=== PATIENT | female | born 1950 | race Caucasian/White ===

== ENCOUNTER 2018-08-18 06:05 | Observation (INO) ==
[2018-08-18] MEDS ORDERED: ASPIRIN PO ONE (06:13)
--- NOTE | 2018-08-18 06:27 | PROVIDER DOCUMENTATION ---
HPI-Chest Pain - General Chief Complaint: Chest Pain Stated Complaint: CP ALL NIGHT Time Seen by Provider: 08/18/18 06:11 Source: patient - History of Present Illness-CP Nature of Presenting Problem: pt has had intermittent Chest discomfort since Tuesday. Nothing made better norworse, no radiation. However, ~0300 this am, it returned, constant since onset, assoc with ht racing, radiates to back. No SOB, no N/V, no diaphoresis. Turning in some positions made it better. Was trying to wait on her appointment with Dr Arnold on 09/04. Saw him once in 2017, had EKG, echo, stress test. Location: reports: substernal Chest Pain Radiation: reports: back Quality of Pain: reports: other ("discomfort") Severity in ED: moderate Timing: still present, constant Context/Activities at Onset: reports: light activity (had just got up to go to restroom) Associated Symptoms: reports: back pain, weakness (ht racing) Nitro Today/Relief: provided by ED Aspirin Treatment Today: 325 mg x 1, provided by ED Prior Chest Pain/Cardiac Workup: reports: echocardiography, stress test Similar Symptoms Previously?: Yes (since Tuesday) Recently Seen Here or By Another Healthcare Provider: No Review of Systems - Adult - REVIEW OF SYSTEMS - ADULT Constitutional: reports: no symptoms reported Eyes: reports: no symptoms reported Ears, Nose, Mouth & Throat: reports: no symptoms reported Cardiovascular: reports: see HPI Respiratory: reports: no symptoms reported Gastrointestinal: reports: no symptoms reported Genitourinary: reports: no symptoms reported Musculoskeletal: reports: no symptoms reported Integumentary: reports: no symptoms reported Neurological: reports: no symptoms reported Psychiatric: reports: no symptoms reported Endocrine: reports: no symptoms reported Hematologic/Lymphatic: reports: no symptoms reported Allergic/Immunologic: reports: no symptoms reported Past History - Adult - PAST MEDICAL HISTORY-ADULT Review of Records: reports: Medications Reviewed Major Childhood Illnesses: reports: denies history Cardiovascular: reports: HTN Gastrointestinal: reports: GERD Obstetrical/Gynecological: reports: uterine/ovarian cancer Genitourinary: reports: denies history Musculoskeletal: reports: denies history Neurological: reports: denies history Psychiatric: reports: denies history Endocrine/Immune: reports: denies history - SOCIAL HISTORY Smoking: denies Physical Exam-General - PHYSICAL EXAM-ADULT Initial Vital Signs Reviewed: Yes - CONSTITUTIONAL General Appearance: appears well, alert, no apparent distress - EYES Eyes: PERRL/EOMI, pink conjunctivae - HEAD, EARS, NOSE, MOUTH & THROAT HENMT: normocephalic/atraumatic, moist mucous membranes, normal ENT inspection, pharynx normal - NECK Neck: non-tender, full range of motion, supple, normal inspection - RESPIRATORY Respiratory: chest non-tender, lungs clear, normal breath sounds, no pleuratic chest pain, no respiratory distress, no accessory muscle use - CARDIOVASCULAR Cardiovascular: normal peripheral pulses, regular rate, rhythm, no edema, no gallop, no murmur - GASTROINTESTINAL (ABDOMEN) Abdominal Exam: non tender, soft - MUSCULOSKELETAL Back Exam: normal inspection, no CVA tenderness, no vertebral tenderness, decreased range of motion Extremity: normal range of motion, non-tender, normal inspection - SKIN Integumentary: normal color, normal turgor, warm/dry - 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, grossly normal, no motor/sensory deficits - PSYCHIATRIC Psych/Mental Status: normal mood/affect, normal thought content, normal thought process, oriented x 3 - HEART Score HEART Score: History: Moderately Suspicious HEART Score: ECG: Normal HEART Score: Age: > or = 65 Years HEART Score: Risk Factors for Atherosclerotic Disease: 1 or 2 Risk Factors HEART Score: Troponin: < or = Normal Limit Total HEART Score:: 4 Progress - PLAN OF CARE/RESULTS Progress/Plan/Lab Results: Vital Signs - 8 hr 08/18/18 06:08 08/18/18 06:14 08/18/18 06:15 Temperature 97.9 F Pulse Rate 90 142 H Respiratory Rate 20 Blood Pressure 162/67 162/67 O2 Sat by Pulse Oximetry 98 97 98 08/18/18 06:20 08/18/18 06:30 08/18/18 06:33 Temperature Pulse Rate 87 74 72 Respiratory Rate 19 16 13 Blood Pressure 149/67 O2 Sat by Pulse Oximetry 99 99 99 08/18/18 06:40 08/18/18 06:44 08/18/18 06:50 Temperature Pulse Rate 88 75 76 Respiratory Rate 19 18 22 Blood Pressure 153/61 O2 Sat by Pulse Oximetry 98 96 08/18/18 07:00 08/18/18 07:02 Temperature 97.9 F Pulse Rate 72 72 Respiratory Rate 19 13 Blood Pressure 138/64 O2 Sat by Pulse Oximetry 98 98 Laboratory Results - last 24 hr 08/18/18 08/18/18 08/18/18 06:22 06:22 06:22 WBC 8.33 RBC 4.92 Hgb 15.4 Hct 44.3 MCV 90.0 MCH 31.3 H MCHC 34.8 RDW Std Deviation 13.3 Plt Count 284 MPV 11.5 H Immature Gran % (Auto) 0.4 Neut % (Auto) 70.6 Lymph % (Auto) 20.4 L Edwards % (Auto) 7.4 Eos % (Auto) 0.8 Baso % (Auto) 0.4 Immature Gran # (Auto) 0.03 Neut # (Auto) 5.88 Lymph # (Auto) 1.70 Edwards # (Auto) 0.62 H Eos # (Auto) 0.07 Baso # (Auto) 0.03 PT INR PTT (Actin FS) D-Dimer, Quantitative Sodium 145 Potassium 3.7 Chloride 104 Carbon Dioxide 26 Anion Gap 15 BUN 11 Creatinine 0.6 Estimated GFR/1.73 m2 > 60 BUN/Creatinine Ratio 18 Glucose 102 Calculated Osmolality 288 Calcium 11.3 H Total Bilirubin 0.51 AST 19 ALT 25 Alkaline Phosphatase 105 H Creatine Kinase 30 Troponin T Aoy-[id number] Pept 122 Total Protein 6.9 Albumin 4.8 Globulin 2.1 Albumin/Globulin Ratio 2.3 08/18/18 08/18/18 06:22 06:22 WBC RBC Hgb Hct MCV MCH MCHC RDW Std Deviation Plt Count MPV Immature Gran % (Auto) Neut % (Auto) Lymph % (Auto) Edwards % (Auto) Eos % (Auto) Baso % (Auto) Immature Gran # (Auto) Neut # (Auto) Lymph # (Auto) Edwards # (Auto) Eos # (Auto) Baso # (Auto) PT 11.9 INR 0.81 PTT (Actin FS) 23.9 D-Dimer, Quantitative 0.27 Sodium Potassium Chloride Carbon Dioxide Anion Gap BUN Creatinine Estimated GFR/1.73 m2 BUN/Creatinine Ratio Glucose Calculated Osmolality Calcium Total Bilirubin AST ALT Alkaline Phosphatase Creatine Kinase Troponin T < 0.010 Hjw-[id number]-Zzadbninagg Pept Total Protein Albumin Globulin Albumin/Globulin Ratio Orders Category Date Time Status Nursing- Obtain EKG ONCE Care 08/18/18 06:13 Active Nursing- Obtain EKG once Care 08/18/18 08:15 Active CHEST-1 VIEW [RAD] Stat Exams 08/18/18 06:13 Completed CBC WITH DIFF [HEME] Stat Lab 08/18/18 06:22 Completed CK PROFILE [SP CHEM] Stat Lab 08/18/18 06:22 Completed COMPREHENSIVE METABOLIC PANEL [CHEM] Stat Lab 08/18/18 06:22 Completed D-DIMER [COAG] Stat Lab 08/18/18 06:22 Completed PRO B-NATRIURETIC PEPTIDE Stat Lab 08/18/18 06:22 Completed PROTIME WITH INR [COAG] Stat Lab 08/18/18 06:22 Completed PTT [COAG] Stat Lab 08/18/18 06:22 Completed TROPONIN T Stat Lab 08/18/18 06:22 Completed TROPONIN T Stat Lab 08/18/18 08:15 Uncollected Aspirin Med 08/18/18 06:13 Discontinued 324 mg PO NOW ONE Nitroglycerin Med 08/18/18 06:31 Discontinued 1 inch TOP NOW ONE EKG [EKG] Stat Ther 08/18/18 06:13 Draft EKG [EKG] Stat Ther 08/18/18 08:15 Draft Transfer/Admit Order [TRANSFER] Routine Transfer 08/18/18 07:36 Ordered Result Diagrams: 08/18/18 06:22 08/18/18 06:22 - REASSESSMENT Reassessment #1 Time Reassessed: 07:29 Status: improving (Seen and examined by me. Case discussed with Dr. Cordon at shift change. Patient has been having intermittent SS Chest Pain/pressure, radiating to back getting more frequent and severe, unable to sleep last night. Patient has HEART score of 4 moderate risk. Has an appointment 09/04 with [facility], but felt she couldn't wait till then to get checked out.) - EKG 1 Time of EKG reading by physician:: 06:15 EKG Read and Signed by:: Jani Cordon EKG Interpretation (*Must complete 3 of following elements*): Normal Rate: 74 Rhythm: NSR [place]: normal QRS: normal ST Wave: normal 2 Time of EKG reading by physician:: 07:24 EKG Read and Signed by:: Nicolás Douglas EKG Interpretation (*Must complete 3 of following elements*): Normal Rate: 67 Rhythm: nsr [place]: normal QRS: other (early transition) CO Interval: normal ST Wave: normal Prior EKG Comparison: unchanged from prior - XRAY 1 XRAY Study: Chest Impression: Abnormal, See EMR Report ( EXAM: CHEST-1 VIEW 08/18/2018 HISTORY: cp TECHNIQUE: AP portable at 0641 COMMENT: There is no evidence of acute cardiac or pulmonary disease. There is curvature of the thoracic spine with convexity to the right. There are no previous studies. IMPRESSION: No evidence of acute disease. Electronically signed by Yuniel Simons 08/18/2018 7:04 AM 08/18/18 0704 Interpreting Physician: Yuniel Simons MD Dictated Date/Time: 08/18/18 0703 cc: Jani Cordon MD; Coy Gaffney) - CONSULTS/PCP/HOSPITALIST Notification #1 *Consult/PCP/Hospitalist*: Hospitalist paged at 0730 Time Discussed: 07:39 (Kylee ZAVALA answered) Consult Disposition: Admit (to [facility]) - CHANGE OF SHIFT REPORT (ED Provider) 1 Report Given and Care Transferred to:: Stella Time of Transfer: 06:59 Items Pending: Labs Departure - Departure Date of Disposition Decision: 08/18/18 Time of Disposition Decision: 07:31 DIAGNOSIS: Chest pain of uncertain etiology, Unstable angina Disposition: ADMITTED INPATIENT 09 Certified Medical Emergency: Emergent Condition: Stable Referrals and Follow-Ups: Coy Gaffney [Primary Care Provider] - - Critical Care Note This patient required my direct & personal management of CC.: No Attestation - Physician/ NIEVES Attestation Patient care was provided by Advanced Practice Provider:: No The physician spent face to face time with patient:: Yes Advanced Practice Provider documentation review:: Supervising physician onsite and consulted in the evaluation and care of this patient. The physician did have a face to face encounter with the patient.
[2018-08-18] MEDS ORDERED: NITROGLYCERIN TOP ONE (06:31)
[2018-08-18 06:33] LABS: BASO# 0.03 X1000 (0.0-0.2); BASO% 0.4 % (0.0-0.8); EOS# 0.07 X1000 (0.0-0.7); EOS% 0.8 % (0.0-10.0); HEMATOCRIT 44.3 % (37.0-47.0); HEMOGLOBIN 15.4 g/dL (12.0-16.0); IMM GRAN# 0.03 X1000 (0.0-0.04); IMM GRAN% 0.4 % (0.0-0.5); LYMPH% 20.4 % (20.5-51.1); MCH 31.3 PG (27-31); MCHC 34.8 g/dL (33-37); MONO# 0.62 X1000 (0.11-0.59); MONO% 7.4 % (1.7-9.3); MPV 11.5 FL (7.4-10.4); NEUT# 5.88 X1000 (1.4-6.5); NEUT% 70.6 % (42.2-75.2); PLT 284 X1000 (130-400); RBC 4.92 XMIL (4.2-5.4); RDW 13.3 % (11.5-14.5); WBC 8.33 X1000 (4.8-10.8)
--- NOTE | 2018-08-18 06:43 | EKG Report ---
Test Performed on : 08/18/2018 06:14:04 AM Test Reason : CP Blood Pressure : / mmHG Vent. Rate : 074 BPM Atrial Rate : 074 BPM P-R Int : 160 ms QRS Dur : 090 ms QT Int : 392 ms P-R-T Axes : 062 -25 062 degrees QTc Int : 435 ms Normal sinus rhythm. Normal ECG No previous ECGs available Unconfirmed Result
[2018-08-18 06:50] LABS: AGAP 15; ALB/GLOB RATIO 2.3; ALBUMIN 4.8 g/dL (3.5-5.0); ALKALINE PHOSPHATASE 105 U/L (32-104); BUN 11 mg/dL (8-22); CALCIUM 11.3 mg/dL (8.8-10.2); CHLORIDE 104 mmol/L (98-107); CK PROFILE 30 U/L (24-173); COSMO 288; CREATININE 0.6 mg/dL (0.5-0.9); ESTIMATED GFR > 60; GLUCOSE 102 mg/dL (70-104); GOT 19 U/L (10-30); GPT 25 U/L (10-36); POTASSIUM 3.7 mmol/L (3.5-5.1); SODIUM 145 mmol/L (136-145); TCO2 26 mmol/L (25-35); TOTAL BILIRUBIN 0.51 mg/dL (0.20-1.00); TOTAL PROTEIN 6.9 g/dL (6.3-8.3)
--- NOTE | 2018-08-18 07:06 | Diag Imaging Result Doc PS360 ---
EXAM: CHEST-1 VIEW 08/18/2018 HISTORY: cp TECHNIQUE: AP portable at 0641 COMMENT: There is no evidence of acute cardiac or pulmonary disease. There is curvature of the thoracic spine with convexity to the right. There are no previous studies. IMPRESSION: No evidence of acute disease. Electronically signed by Yuniel Simons 08/18/2018 7:04 AM
[2018-08-18 07:20] LABS: INR 0.81; PROTIME 11.9 Seconds (11.0-16.0)
[2018-08-18 07:21] LABS: PTT 23.9 Seconds (22.3-41.8)
--- NOTE | 2018-08-18 07:21 | EKG Report ---
Test Performed on : 08/18/2018 07:17:34 AM Test Reason : REPEAT Blood Pressure : / mmHG Vent. Rate : 067 BPM Atrial Rate : 067 BPM P-R Int : 166 ms QRS Dur : 088 ms QT Int : 410 ms P-R-T Axes : 028 -29 040 degrees QTc Int : 433 ms Normal sinus rhythm. Normal ECG When compared with ECG of 18-AUG-2018 06:14, (Unconfirmed) No significant change was found Unconfirmed Result
[2018-08-18] MEDS ORDERED: ZOFRAN IV PRN (08:25)
[2018-08-18] MEDS ORDERED: NITROGLYCERIN SL PRN (08:25)
[2018-08-18] MEDS ORDERED: TYLENOL PO PRN (08:25)
[2018-08-18] MEDS ORDERED: ASPIRIN PO SCH (09:00)
[2018-08-18] MEDS ORDERED: NS 1,000 ML IV SCH (09:30)
[2018-08-18 09:58] LABS: CHOLESTEROL 172 mg/dL (0-200); HDL 58 mg/dL (45-65); LDL 80 mg/dL; TRIGLYCERIDES 172 mg/dL (35-135); VLDL 34 mg/dL
--- NOTE | 2018-08-18 10:15 | HISTORY AND PHYSICAL ---
PRIMARY CARE PROVIDER: Dr. Coy Gaffney. REGIONAL AIRLINE PILOT: Dr. Arnold. CHIEF COMPLAINT: Chest discomfort. HISTORY OF PRESENT ILLNESS: Ms. Kellogg is a 67-year-old female who carries a past medical history of hypertension, hyperlipidemia and ovarian cancer status post complete hysterectomy and chemotherapy back in 2006. Reports since Tuesday, she has been having this intermittent chest discomfort in more of the right side of her chest. It was nonradiating. There was no associated nausea, vomiting, diaphoresis, dizziness, shortness of breath; however, she states she would have to take an occasional long breath. She also reports hearing her heart beat in her ears. She reports she mainly gets this sensation when she lies down. She got up to use the restroom around 3:00 a.m. this morning and that is when it became its most intense. She reports having an appointment with Dr. Arnold in mid August but she decided to come in and get checked out. Two EKGs show normal sinus rhythm. Two sets of negative cardiac enzymes. We will continue her NPO status and see if we can set her up for a stress test today. PAST MEDICAL HISTORY: 1. Hypertension. 2. Hyperlipidemia. 3. Ovarian cancer. PAST SURGICAL HISTORY: 1. Complete hysterectomy in 2006. 2. Lung wedge in 1980 for fungus. 3. Parotid left gland mass removal. 4. Incisional hernia. 5. Basal cell carcinoma removed from the forehead this month. REVIEW OF SYSTEMS: Twelve point review of systems complete and negative except for those mentioned in the HPI. FAMILY HISTORY: Father had a CABG in 2000. He lived to be . Mother from CVA at the age of 81. SOCIAL HISTORY: She is from [place]. She is single, no children. She does have a supportive brother at the bedside. No tobacco, alcohol or illicit drug use. ALLERGIES: Benadryl, anaphylaxis. Medrol Dosepak causes flushing. HOME MEDICATIONS: 1. Norvasc 5 mg p.o. q.p.m. 2. Lipitor 10 mg p.o. at bedtime. 3. Ocuvite adult soft gel 1 each p.o. q.a.m. 4. Calcitrate one each p.o. q.a.m. 5. Catapres 0.1 mg p.o. p.r.n. blood pressure. 6. Boniva 150 mg p.o. q. 30 days. 7. Prinivil 20 mg p.o. daily. 8. Toprol XL 25 mg p.o. daily. 9. Prilosec 40 mg p.o. daily. PHYSICAL EXAMINATION: VITAL SIGNS: Temperature is 97.2 degrees, heart rate 82, respirations 18, blood pressure 135/59, O2 is 96% on room air. GENERAL: Ms. Kellogg is an anxious appearing 67-year-old female, is lying on the bed in no acute distress. HEENT: Atraumatic, normocephalic. PERRL. NECK: Supple. Trachea midline. CARDIOVASCULAR: S1, S2 appreciated. No murmurs, gallops, rubs noted. RESPIRATORY: Lung sounds clear bilaterally. GASTROINTESTINAL: Abdomen soft, nontender, nondistended. Positive bowel sounds. LOWER EXTREMITIES: Negative for edema. SKIN: Appears to be warm, dry and intact. NEUROLOGICAL: No focal deficits noted. The patient is awake, alert and oriented x4. Follows commands. Moves all extremities. DIAGNOSTIC DATA: Chest x-ray, no evidence of acute disease. Initial EKG normal sinus rhythm at 74 beats per minute. Second EKG, normal sinus rhythm at 67 beats per minute. LABORATORY DATA: Essentially unremarkable. She has had 2 sets of negative cardiac enzymes. ASSESSMENT AND PLAN: 1. Atypical chest pain, we will rule out AK. The patient has had 2 sets of negative cardiac enzymes. We will go ahead and set her up with an echocardiogram, stress test. Consult Dr. Arnold. Continue her NPO status. Continue a full dose aspirin, sublingual nitro p.r.n., sublingual nitro check lipids and TSH. 2. Hypertension. We will resume home medications when appropriate. 3. Hyperlipidemia. We will continue statin. 4. History of ovarian cancer status post complete hysterectomy, chemotherapy back in 2006. Further recommendations to follow physician evaluation, laboratory and diagnostic data. Dictated by SALLY Bailey for Danilo Jiang MD cc: MD Coy Harrison MD Luis N. Villanueva, MD ADDENDUM: I agree with most components of history, physical, assessment and plan. A separate addendum has been dictated. RENATE
[2018-08-18] MEDS ORDERED: LEXISCAN ONE (12:09)
[2018-08-18] MEDS ORDERED: AMINOPHYLLINE ONE (12:27)
--- NOTE | 2018-08-18 15:11 | Diag Imaging Result Document ---
PROCEDURE NAME: MYOCARDIAL PERF SCAN, STR/REST - 08/18/2018 SUMMARY: The patient was administered 10.7 mCi of technetium-99m sestamibi, after which resting cardiac images were obtained. The patient was subsequently administered Lexiscan 0.4 mg intravenously, after which the heart rate went from 75 beats per minute to 130 beats per minute and the blood pressure went from 127/63 to 118/67. With Lexiscan, the patient denied chest discomfort. Following the administration of Lexiscan, the patient was administered 30.5 mCi of technetium 99-m sestamibi, after which gated stress cardiac images were obtained. Baseline ECG demonstrated normal sinus rhythm, left axis deviation and delayed precordial R-wave transition. With Lexiscan, there were no diagnostic ST-segment changes. SPECT images were reconstructed in the short, horizontal long, vertical long axis. Review of these images demonstrated homogeneous uptake of radiopharmaceutical on both stress and resting images. Gated images demonstrate a calculated left ventricular ejection fraction of 87% with symmetrical wall motion/thickening. CONCLUSIONS: 1. Adequate response to Lexiscan. 2. Clinically negative for chest pain. 3. Electrocardiographically, there were no diagnostic ST-segment changes on ECG following the administration of Lexiscan. 4. Normal Lexiscan sestamibi images. cc: Brent Potter MD
--- NOTE | 2018-08-18 19:53 | HISTORY AND PHYSICAL ---
ADDENDUM: I agree with most components of the history, physical, assessment and plan. HISTORY OF PRESENT ILLNESS: In brief, Ms. Kellogg is a 67-year-old lady with past medical history of essential hypertension, hyperlipidemia, and ovarian cancer status post total hysterectomy and chemotherapy in 2006 who was admitted for intermittent right- sided chest pain which has been ongoing since a few weeks. Her chest pain is located on the right chest, which often times is precipitated by a lying-down position with sometimes radiation to the right shoulder, without any associated palpitations or shortness of breath, and dull in nature. Today her chest pain woke her up from night sleep, and so she decided to come to the emergency room. In the emergency room, she was hemodynamically stable. Her troponins were negative, and EKG had normal sinus rhythm. She underwent stress test. Results are pending. The patient denies current chest pain. She has a history of gallbladder stones. She does, however, complain of occasional acid reflux. PHYSICAL EXAMINATION: VITAL SIGNS: Temperature 98.2 degrees, pulse 79, respiratory rate 18, blood pressure 125/52, saturating 90% room air. GENERAL: Does not appear in any acute distress. HEENT: Oral cavity is moist. RESPIRATORY: Air entry bilaterally equal. No wheeze, rhonchi, crackles. CARDIOVASCULAR: S1, S2 normal. No murmur, rub, or gallop. ABDOMEN: Soft, nontender. No chest wall tenderness. Active bowel sounds. EXTREMITIES: No lower extremity edema. NEUROLOGIC: She is alert and oriented x3. LABS: Suggestive of normal hemoglobin, normal platelet count, normal coagulation, normal D-dimer, normal kidney function with BUN of 11, creatinine of 0.6. Her calcium was 11.3, and she received some intravenous fluids. Microbiology: No data. IMAGING: Chest x-ray did not have any evidence of acute disease. Myocardial perfusion scan detected adequate response to Lexiscan. There were no diagnostic ST-segment changes on ECG following the administration of Lexiscan, and normal Lexiscan images. ASSESSMENT AND PLAN: 1. Atypical chest pain. Differential could be chest pain related to gastroesophageal reflux disease (Ibandronate for osteoporosis could cause it) versus gallbladder disease. 2. Essential hypertension. 3. Hyperlipidemia. 4. Ovarian cancer status post total hysterectomy and chemotherapy in 2006. 5. Hyperlipidemia. 6. Osteoporosis. 7. Chronic gastroesophageal reflux disease. PLAN: I will follow up with final results of nuclear medicine myocardial perfusion stress test. I would also get ultrasound abdomen to rule out cholelithiasis. I will resume most of her home medications. If her stress test results are negative and the ultrasound abdomen is unremarkable, my plan is to discharge her home with outpatient regular doctor follow-up. My suspicion is extremely less that her chest pain is coming from the heart. cc: Danilo Jiang MD MTDD
--- NOTE | 2018-08-18 20:35 | CARDIOLOGY CONSULTATION ---
DATE: 08/18/2018 REQUESTING PHYSICIAN: Hospitalist service. PRIMARY PHYSICIAN: Coy Gaffney MD CHIEF COMPLAINT: Chest discomfort. HISTORY: Ms. Kellogg is a pleasant 67-year-old female who I have seen previously in my office about 2 years ago. At this time she states that about 3 days prior to admission, especially at night, she developed a discomfort pressure-like on the top of the chest, right- sided. This appeared to get worse by lying flat and better by standing up. It was of mild intensity. The following day, Tuesday and Tuesday, she did okay. On evening, she experienced more sustained and more intense discomfort at the same level of the chest, and it did not seem to go away. At that time, she became frightened and decided to come to the emergency room, seeking medical evaluation. They did an initial electrocardiogram that shows no acute changes. They have done cardiac enzymes. They are negative x2. A proBNP level was checked and is normal. D- dimer is normal. A chest x-ray was done and is normal. The patient says that the discomfort has decreased a great deal. She still feels a little bit of pressure-like on the right side of the chest. It seems to worsened by lying down and not by getting up and moving. PAST MEDICAL HISTORY: Positive for previous issues with high blood pressure. We saw her at the office in 2016. At that time, we did a stress test and a 2D echocardiogram 05/03/2016. Those studies came back normal. She has hyperlipidemia. She has been diagnosed in the past with ovarian cancer, stage IV, and has been treated with chemotherapy and surgery, and she is being considered cured for the past 10 years. She has history of acid reflux. PAST SURGICAL HISTORY: Previous hysterectomy. She has had paralytic lung surgery and incisional hernia repair. SOCIAL HISTORY: She is single. She used to work in an office. Retired. She has no children. She lives at home. FAMILY HISTORY: Father had coronary bypass surgery at the age of 83 and lived to be 98. Mother had a stroke at the age of 81. ALLERGIES: She is allergic to Benadryl and Medrol Dosepak. MEDICATIONS: Her home medications at this time included amlodipine 5 mg at bedtime; Lipitor 10 mg at bedtime; clonidine 0.1 mg as needed; Boniva 150 every 30 days; lisinopril 20 mg daily; metoprolol 25 daily; omeprazole 40 mg daily. REVIEW OF SYSTEMS: Otherwise is noncontributory. Her blood pressure has been better controlled since she was placed on metoprolol. Otherwise, she does not have any significant additional issues. PHYSICAL EXAMINATION: Blood pressure 135/59, temperature 97.8 degrees, respirations 16, pulse 78. The patient is awake, alert, oriented, in no distress.HEENT: Unremarkable. Chest clear to auscultation and percussion. Heart sounds regular and rhythmic. No gallop or murmur. Abdomen is nontender, soft. No masses, no hepatomegaly. Extremities show good pulses. No peripheral edema. Neurologic exam nonfocal. Moves all 4 extremities. LABORATORY DATA: Hemoglobin, white cell count and hematocrit are normal, platelet count normal. PT, PTT normal. BUN, creatinine, sodium and potassium normal. Liver function tests, except for alkaline phosphatase that is borderline elevated, are unremarkable. Lipid panel: Total cholesterol 172, triglycerides 172 mg/dl, LDL 80, HDL 58. TSH normal. IMPRESSION: 1. Patient presenting with what appears to be atypical vs. noncardiac chest pain. 2. History of hypertension. 3. History of ovarian cancer in the past. 4. History of acid reflux. 5. Hyperlipidemia. RECOMMENDATIONS: At this time, I would suggest to pursue stress testing and echocardiography to further evaluate. If those studies are normal, then we will probably consider doing an ultrasound of the gallbladder to make sure she does not have gallstones. Thank you again for the opportunity to participate in her evaluation. cc: MD RENATE Ospina
[2018-08-18] MEDS ORDERED: LIPITOR PO SCH (21:00)
[2018-08-18] MEDS ORDERED: NORVASC PO SCH (21:00)
--- NOTE | 2018-08-18 22:52 | ECHO REPORT ---
ORDER DATE: 08/18/2018 MEASUREMENTS: Septal thickness 1.1, left ventricular internal diameter diastole 3.6, posterior wall thickness 1.0, left ventricular internal diameter in systole 2.5, aortic root diameter 3.0, left atrium 3.8. SUMMARY: 1. Fair quality study. 2. Aortic valve is trileaflet and opens normally on 2-dimensional images. Peak gradient across aortic valve is 12 mmHg. There is trace aortic regurgitation. Mitral, tricuspid, and pulmonic valves are without evidence of structural abnormality with trace mitral regurgitation, trace tricuspid regurgitation, and trace pulmonic insufficiency. The aortic root is normal in size. There is mild dilatation of proximal ascending aorta. 3. Normal left ventricular chamber size with upper normal wall thickness demonstrated. Estimated left ventricular ejection fraction appears to be at least 65%. No regional wall motion abnormalities are evident. Left atrium, right atrium, and right ventricle are normal in size with grossly preserved right ventricular systolic function. 4. Small pericardial effusion appears to be collected predominant posteriorly without echocardiographic evidence of hemodynamic impact. 5. Appearance of inferior vena cava suggests normal central venous pressure. cc: Brent Potter MD
[2018-08-19] MEDS ORDERED: PRILOSEC PO SCH ×2 (07:00)
--- NOTE | 2018-08-19 07:27 | Diag Imaging Result Doc PS360 ---
EXAM: CHEST-PORTABLE 08/19/2018 HISTORY: Chest Pain TECHNIQUE: AP portable at 0617 COMMENT: The left heart border is obscured. This was not the case on 08/18/2018. IMPRESSION: Atelectasis versus pneumonia in the lingula. Electronically signed by Yuniel Simons 08/19/2018 7:25 AM
[2018-08-19 07:37] LABS: BASO# 0.03 X1000 (0.0-0.2); BASO% 0.4 % (0.0-0.8); EOS# 0.11 X1000 (0.0-0.7); EOS% 1.4 % (0.0-10.0); HEMATOCRIT 37.7 % (37.0-47.0); HEMOGLOBIN 12.8 g/dL (12.0-16.0); LYMPH# 1.56 X1000 (1.2-3.4); LYMPH% 20.5 % (20.5-51.1); MCH 31.7 PG (27-31); MCV 93.3 FL (81-99); MONO# 0.63 X1000 (0.11-0.59); MONO% 8.3 % (1.7-9.3); NEUT# 5.28 X1000 (1.4-6.5); NEUT% 69.4 % (42.2-75.2); PLT 246 X1000 (130-400); RBC 4.04 XMIL (4.2-5.4); RDW 13.2 % (11.5-14.5); WBC 7.61 X1000 (4.8-10.8)
[2018-08-19 07:51] LABS: AGAP 9; BUN 13 mg/dL (8-22); CALCIUM 8.7 mg/dL (8.8-10.2); CHLORIDE 104 mmol/L (98-107); COSMO 277; CREATININE 0.7 mg/dL (0.5-0.9); ESTIMATED GFR > 60; GLUCOSE 93 mg/dL (70-104); POTASSIUM 3.7 mmol/L (3.5-5.1); SODIUM 139 mmol/L (136-145); TCO2 26 mmol/L (25-35)
[2018-08-19] MEDS ORDERED: TOPROL XL PO SCH (09:00)
[2018-08-19] MEDS ORDERED: PATIENT'S OWN MED PO SCH (09:00)
[2018-08-19] MEDS ORDERED: ASPIRIN PO SCH (09:00)
[2018-08-19] MEDS ORDERED: PRINIVIL PO SCH (09:00)
--- NOTE | 2018-08-19 10:05 | Diag Imaging Result Doc PS360 ---
EXAM: US ABDOMEN-COMPLETE 08/19/2018 HISTORY: Eval for gallstones. Intermittent right chest pain TECHNIQUE: Abdominal ultrasound COMMENT: The liver is hyperechoic which may be due to fatty change. The right kidneys without evidence of hydronephrosis. There is a hyperechoic nodule in the anterior cortex measuring 7 mm in diameter. This may be an angiomyolipoma. There is antegrade flow in the portal vein. The gallbladder is clear and nontender. The visualized portions of the aorta, inferior vena cava, and pancreatic head are normal in appearance. The common bile duct measures 5 mm. The left kidney is without evidence of hydronephrosis. The spleen is not enlarged. There is a 16 mm cyst in the parapelvic anterior left central renal echocomplex. IMPRESSION: Hepatic steatosis. Hypoechoic nodule in the right kidney which may be a angiomyolipoma. Electronically signed by Yuniel Simons 08/19/2018 10:02 AM
[2018-08-19 12:43] VITALS: BP 105/48
--- NOTE | 2018-08-19 19:51 | DISCHARGE SUMMARY ---
ADMISSION DATE: 08/18/2018 DISCHARGE DATE: 08/19/2018 DISCHARGE DISPOSITION: Home. DISCHARGE CONDITION: Alert, oriented x3. Denies chest pain, shortness of breath, nausea, vomiting or abdominal pain. VITALS: At the time of discharge temperature 98 degrees, pulse 78, respiratory rate 18, blood pressure 105/48, saturating 96% on room air. PHYSICAL EXAMINATION: General: Does not appear in acute distress. Oral cavity is moist. Air entry bilateral equal. No wheeze, rhonchi, crackles. S1, S2 normal. No murmur, rub, or gallop. Abdomen: Soft, nontender. No lower extremity edema. DISCHARGE DIAGNOSIS: Atypical chest pain with negative nuclear medicine stress test likely because of gastroesophageal reflux disease, possible contribution from Boniva for osteoporosis. OTHER DIAGNOSIS: 1. Essential hypertension. 2. Hyperlipidemia. 3. Osteoporosis. 4. Ovarian cancer status post total hysterectomy and chemotherapy in 2006. 5. Chronic gastroesophageal reflux disease. DISCHARGE MEDICATIONS: Atorvastatin 10 mg at nighttime, Boniva 150 mg every 30 days, calcium, multivitamin 1 tablet daily in the morning, clonidine 0.1 mg as needed for systolic above 180, amlodipine 5 mg at nighttime, Ocuvite adult 50+ soft gel 1 tablet in the morning time, omeprazole 40 mg daily, lisinopril 20 mg daily, metoprolol succinate extended release 25 mg daily. IMAGING: Significant imaging, chest x-ray on admission had no evidence of acute disease. Electrocardiogram had normal sinus rhythm. Echocardiogram had ejection fraction of 65% without any regional wall motion abnormalities and preserved right ventricular systolic function. Myocardial perfusion scan had clinically negative for chest pain. Electrocardiographically there were no ST-segment changes in the ECG and normal Lexiscan sestamibi images. Abdominal ultrasound had hepatic steatosis, hypoechoic nodule in the right kidney which may be angiomyolipoma. HOSPITAL COURSE SUMMARY: Ms. Kellogg a 67 years old lady with past medical history of essential hypertension who came in with intermittent right-sided chest pain since a few weeks duration. The pain was located on the right chest often time precipitated by lying down with sometimes radiation to right shoulder without any associated palpitation or shortness of breath and it was dull in nature. Today her chest pain woke her up from her night sleeps and so she decided to come to the emergency room. In the emergency room she was hemodynamically stable. Her troponins were negative x3. Her EKG was normal sinus rhythm. Echocardiogram had suggested normal left ventricular ejection fraction without regional wall motion abnormality. Cardiology was consulted and patient underwent nuclear medicine stress test Lexiscan which was unremarkable for any reversible ischemia. It was thought patient's chest pain was likely because of her anxiety, gastroesophageal reflux disease and dyspepsia. There was also suspicion of her osteoporosis medication Boniva contributing to it. Patient was advised to take antacid medications and discuss with her regular doctor about whether she would need this medication. At the time of discharge she was chest pain free. TIME SPENT: More than 30 minutes were spent in discharging patient. All of her and patient's 's questions were answered satisfactorily. cc: Danilo Jiang MD MTDD
--- NOTE | 2018-08-21 07:36 | EKG Report ---
Test Performed on : 08/19/2018 06:31:55 AM Test Reason : follow up Blood Pressure : / mmHG Vent. Rate : 078 BPM Atrial Rate : 078 BPM P-R Int : 166 ms QRS Dur : 090 ms QT Int : 398 ms P-R-T Axes : 049 -36 059 degrees QTc Int : 453 ms Normal sinus rhythm. Left axis deviation RSR' or QR pattern in V1 suggests right ventricular conduction delay Abnormal ECG When compared with ECG of 18-AUG-2018 07:17, (Unconfirmed) RSR' pattern in V1 is now present Confirmed by Juan Carlos WOMACK, Dillon Dominique ([id number]) on 08/21/2018 9:30:20 AM
== END 2018-08-19 13:31 | disposition home or self-care (01) ==
LOC: 3N 06:05 → ED 06:05
PROVIDERS: ATTEND Internal Medicine